=== PATIENT | female | born 1985 | race Caucasian/White ===

== ENCOUNTER 2016-06-27 19:36 | Emergency (ER) | payer OTHER ==
[2016-06-27 19:42] VITALS: BP 131/61; PULSE 67; TEMP 98.3; BMI 32.2
--- NOTE | 2016-06-27 20:59 | PDOC ---
History of Present Illness - General Chief Complaint: Pain Stated Complaint: CHEST PAIN Time Seen by Provider: 06/27/16 20:20 History Source: Patient - History of Present Illness Presenting Symptoms: Chest Pain Timing/Duration: reports: intermittent Chest Pain Radiation: reports: arms Past History - Past Medical History Allergies/Adverse Reactions: Allergies Allergy/AdvReac Type Severity Reaction Status Date / Time No Known Drug Allergies Allergy Verified 01/28/16 14:12 Home Medications: Ambulatory Orders Loratadine [Claritin -] 10 mg PO DAILY 06/27/16 Asthma: No Cancer: No Cardiac Disorders: No Diabetes: No HTN: No Seizures: No Thyroid Disease: No - Surgical History Cholecystectomy: Yes - Reproductive History (#): 1 Para: 0 - Psycho/Social/Smoking Cessation Hx Anxiety: No Suicidal Ideation: No Smoking Status: No Smoking History: Never smoked Have you smoked in the past 12 months: No Number of Cigarettes Smoked Daily: 0 Hx Alcohol Use: No Drug/Substance Use Hx: No Substance Use Type: None Hx Substance Use Treatment: No Review of Systems - Review of Systems Constitutional: No: Chills, Fever Respiratory: No: Cough, Shortness of Breath Cardiac (ROS): Yes: Chest Pain. No: Palpitations Neurological: No: Dizziness *Physical Exam - Vital Signs Last Vital Signs Temp Pulse Resp BP Pulse Ox 98.3 F 67 16 131/61 99 06/27/16 19:40 06/27/16 19:40 06/27/16 19:40 06/27/16 19:40 06/27/16 19:40 - Physical Exam General Appearance: Yes: Appropriately Dressed. No: Apparent Distress HEENT: positive: Normal Voice Neck: positive: Supple Respiratory/Chest: positive: Chest Tender (to lateral aspect of L breast, no skin changes or lump palpated), Lungs Clear, Normal Breath Sounds. negative: Respiratory Distress Cardiovascular: positive: Regular Rate, S1, S2 Extremity: positive: Normal Inspection Integumentary: positive: Dry, Warm Neurologic: positive: Fully Oriented, Alert, Normal Mood/Affect ED Treatment Course - ADDITIONAL ORDERS Additional order review: Laboratory Results 06/27/16 21:00 Urine HCG, Qual Negative - RADIOLOGY Radiology Studies Ordered: Category Date Time Status CHEST PA & LAT [RAD] Stat Radiology 06/27/16 20:53 Taken - Medications Given in the ED: ED Medications Discontinued Medications Generic Name Dose Route Start Last Admin Trade Name Beverly PRN Reason Stop Dose Admin Ibuprofen 800 mg 06/27/16 21:02 06/27/16 21:20 Motrin - PO 06/27/16 21:03 800 mg ONCE ONE Administration Medical Decision Making - Medical Decision Making 06/27/16 20:54 30 yo F, denies any pmhx, here w/ chest pain. Pt reports L sided chest pain radiating to L arm x 5 days, unable to describe, 6/10 and intermittent w/ no exacerbating/alleviating factors. No sob, diaphoresis, n/v, palpitations or leg pain/swelling. No h/o similar sxs. No obvious RFs for DVT/PE and no tob hx. Denies illicit drug use. No fmhx of SCA in a young person. See exam Chest pain Unlikely cardiac as no RF, do not suspect dissection and PERCs out, doubt infxn , i.e PNA as no cough or fever Possibly MSK vs breast source as pain very reproducible to lateral aspect of L breast without any mass/lump or skin changes -EXR and CXR -anticitpate discharge w/ PMD f/u 06/27/16 21:29 EKG read as neg by ED attg. CXR neg for acute pathology. Pt stable for discharge at this time, to f/u with her PMD 06/27/16 21:33 06/27/16 21:46 *DC/Admit/Observation/Transfer Diagnosis at time of Disposition: Chest pain Qualifiers: Chest pain type: unspecified Qualified Code(s): R07.9 - Chest pain, unspecified - Discharge Dispostion Disposition: HOME Condition at time of disposition: Good - Referrals Referrals: Mercedes Ferrer MD [Primary Care Provider] - - Patient Instructions Printed Discharge Instructions: DI for Atypical Chest Pain Additional Instructions: Flanagan EKG de flanagan corazn y flanagan CXR de megan pulmones son normales. La julissa de flanagan dolor es ms probable no flaangan corazn o los pulmones y usted no tiene ningn factores de riesgo para un cogulo de taco. Flanagan dolor puede provenir de flanagan pecho angelique si estuviera tierno en flanagan pecho primo. Flanagan dolor tambin podra ser muscular. [place] motrin, 800 mg cada 6 horas, segn sea necesario para el dolor. Si el dolor contina, realice un seguimiento con flanagan mdico Print Language: GIBRALTARIAN
[2016-06-27] MEDS ORDERED: IBUPROFEN 400 MG TABLET (FP) PO ONE ×2 (21:02→21:19)
--- NOTE | 2016-06-29 09:22 | EKG ---
Test Reason : Blood Pressure : / mmHG Vent. Rate : 065 BPM Atrial Rate : 065 BPM P-R Int : 136 ms QRS Dur : 076 ms QT Int : 416 ms P-R-T Axes : 010 012 016 degrees QTc Int : 432 ms NORMAL SINUS RHYTHM NORMAL ECG NO PREVIOUS ECGS AVAILABLE Confirmed by DALIA ROSALES MD ([id number]) on 06/29/2016 9:22:07 AM Referred By: Confirmed By:DALIA ROSALES MD
== END 2016-06-27 21:42 | disposition home or self-care (01) ==
LOC: JERFT 19:36
DX: R07.89 Other chest pain (principal)
CPT/HCPCS: 71020-TC; 84703; 93005; 93010; 99281-25

== ENCOUNTER 2017-12-15 12:01 | Emergency (ER) | payer OTHER ==
[2017-12-15 12:21] VITALS: TEMP 98.2; BMI 31.6
--- NOTE | 2017-12-15 14:00 | PDOC ---
History of Present Illness - General Chief Complaint: Vaginal Bleeding Stated Complaint: ABD PAIN Time Seen by Provider: 12/15/17 13:30 History Source: Patient, [employer] Used (#[id number]) Exam Limitations: Clinical Condition - History of Present Illness Initial Comments: 12/15/17 14:00 Patient with no significant past medical she present with complain of lower abdominal pain since yesterday with vaginal spotting this morning. Patient reports taking home test 2 days ago and was positive. Patient with LMP November 26. Denies nausea, vomiting. Denies control use. Denies constipation or diarrhea. Denies fever or any other symptoms Timing/Duration: 24 hours Past History - Past Medical History Allergies/Adverse Reactions: Allergies Allergy/AdvReac Type Severity Reaction Status Date / Time No Known Drug Allergies Allergy Verified 12/15/17 12:18 Home Medications: Ambulatory Orders NK [No Known Home Medication] 12/15/17 Asthma: No Cancer: No Cardiac Disorders: No Diabetes: No HTN: No Seizures: No Thyroid Disease: No - Surgical History Cholecystectomy: Yes - Reproductive History (#): 1 Para: 0 - Suicide/Smoking/Psychosocial Hx Smoking Status: No Smoking History: Never smoked Have you smoked in the past 12 months: No Number of Cigarettes Smoked Daily: 0 Hx Alcohol Use: No Drug/Substance Use Hx: No Substance Use Type: None Hx Substance Use Treatment: No Review of Systems - Review of Systems Able to Perform ROS?: Yes Is the patient limited Mosotho proficient: No Constitutional: No: Chills, Fever, Malaise Respiratory: No: Symptoms reported Cardiac (ROS): No: Symptoms Reported ABD/GI: Yes: Symptoms Reported, See HPI, Abdominal cramping (lower abdomen since yesterday). No: Abdominal Distended, Blood Streaked Bowels, Constipated, Diarrhea, Difficulty Swallowing, Nausea, Vomiting : Yes: Other (vaginal spotting). No: Burning, Dysuria, Discharge, Frequency, Flank Pain, Hematuria, Urgency Neurological: No: Weakness, Dizziness All Other Systems: Reviewed and Negative *Physical Exam - Vital Signs Last Vital Signs Temp Pulse Resp BP Pulse Ox 98.2 F 72 16 119/65 99 12/15/17 12:20 12/15/17 12:20 12/15/17 12:20 12/15/17 12:20 12/15/17 12:20 - Physical Exam Comments: 12/15/17 14:03 GENERAL: Well developed, well nourished. Awake and alert. No acute distress. CARDIOVASCULAR: Regular rate and rhythm. No murmurs, rubs, or gallops. Distal pulses are 2+ and symmetric. PULMONARY: No evidence of respiratory distress. Lungs clear to auscultation bilaterally. No wheezing, rales or rhonchi. ABDOMINAL: Soft. Non-tender. Non-distended. No rebound or guarding. No organomegaly. Normoactive bowel sounds. : scant amount of blood in vaginal vault. no active vaginal bleeding. no visible lesions. no CMT. cervical os closed NEUROLOGICAL: Alert, awake, appropriate. PSYCHIATRIC: Cooperative. Good eye contact. Appropriate mood and affect. 12/15/17 15:54 General Appearance: Yes: Nourished, Appropriately Dressed. No: Apparent Distress ED Treatment Course - LABORATORY CBC & Chemistry Diagram: 12/15/17 14:46 12/15/17 14:46 Medical Decision Making - Medical Decision Making 12/15/17 16:58 Patient with no sig Past medical history LMP November 26 present with complain of vaginal spotting and abdominal pain since last night. Patient took a home test 2 days ago which was positive. Exam shows scant vaginal bleeding with no active bleeding. Cervical os closed. Symptoms likely threatened . Labs shows beta hCG of 400+. Pelvic sonogram shows no viable IUP at this time which is expected given low hCG level. Patient stable for discharge with follow-up in 48 hours for repeat beta hCG. Patient given strict follow-up for vaginal bleeding *DC/Admit/Observation/Transfer Diagnosis at time of Disposition: Threatened - Discharge Dispostion Disposition: HOME Condition at time of disposition: Stable Decision to Admit order: No - Referrals Referrals: Tung Duran MD [Staff Physician] - - Patient Instructions Printed Discharge Instructions: DI for Threatened - Post Discharge Activity
[2017-12-15 15:02] LABS: BASO % 0.6 % (0-2.0); HEMATOCRIT 33.7 % (32.4-45.2); HEMOGLOBIN 10.7 GM/dL (10.7-15.3); LYMPH % 36.9 % (8-40); MCH 23.7 pg (25.7-33.7); MCHC 31.8 g/dl (32.0-36.0); MEAN CELL VOLUME 74.6 fl (80-96); MEAN PLT VOLUME 8.4 fl (7.5-11.1); MONO % 6.8 % (3.8-10.2); NEUT % 53.7 % (42.8-82.8); PLATELET COUNT 261 K/MM3 (134-434); RBC 4.52 M/mm3 (3.60-5.2); RDW 15.6 % (11.6-15.6); WHITE BLOOD COUNT 5.1 K/mm3 (4.0-10.0)
[2017-12-15 15:17] LABS: INR 1.03 (0.83-1.09); PROTHROMBIN TIME (PATIENT) 12.2 SEC (9.7-13.0)
[2017-12-15 15:20] LABS: ACTIVATED PTT 33.3 SECONDS (25.2-36.5)
[2017-12-15 15:22] LABS: URINE APPEARANCE CLEAR; URINE BILIRUBIN NEGATIVE (<2.0 mg/dL); URINE COLOR LTYELLOW; URINE GLUCOSE (UA) NEGATIVE (NEGATIVE); URINE KETONE NEGATIVE (NEGATIVE); URINE LEUK ESTERASE NEGATIVE (NEGATIVE); URINE NITRITE NEGATIVE (NEGATIVE); URINE PROTEIN NEGATIVE (NEGATIVE); URINE UROBILINOGEN NEGATIVE mg/dL (0.2-1.0)
[2017-12-15 15:31] LABS: ALBUMIN 4.1 g/dl (3.4-5.0); ALK PHOS 54 U/L (45-117); ANION GAP 9 MMOL/L (8-16); BILIRUBIN,TOTAL 0.6 mg/dL (0.2-1); BLOOD UREA NITROGEN 7 mg/dL (7-18); CALCIUM 8.5 mg/dL (8.5-10.1); CHLORIDE 107 mmol/L (98-107); CO2 24 mmol/L (21-32); CREATININE 0.6 mg/dL (0.55-1.3); GLUCOSE,RANDOM 94 mg/dL (74-106); POTASSIUM 3.8 mmol/L (3.5-5.1); SGOT/AST 26 U/L (15-37); SGPT/ALT 44 U/L (13-61); SODIUM 139 mmol/L (136-145); TOT PROT 7.6 g/dl (6.4-8.2)
[2017-12-15 16:40] VITALS: BP 130/73; PULSE 60
== END 2017-12-15 17:12 | disposition home or self-care (01) ==
LOC: JER 12:01
DX: O26.891 Other specified pregnancy related conditions, first trimester (principal); O20.0 Threatened abortion; Z3A.01 Less than 8 weeks gestation of pregnancy
CPT/HCPCS: 36415; 76817-TC; 80053; 81003; 84702; 85025; 85610; 85730; 86850; 86900; 86901; 87086; 99282-25

== ENCOUNTER 2017-12-29 17:37 | Emergency (ER) | payer OTHER ==
[2017-12-29 17:58] VITALS: BMI 31.8
--- NOTE | 2017-12-29 18:00 | PDOC ---
Rapid Medical Evaluation Chief Complaint: Vaginal Bleeding Time Seen by Provider: 12/29/17 17:58 Medical Evaluation: Allergies Allergy/AdvReac Type Severity Reaction Status Date / Time No Known Drug Allergies Allergy Verified 12/29/17 17:58 Vital Signs Temp Pulse Resp BP Pulse Ox 98.5 F 73 15 103/45 L 98 12/29/17 17:56 12/29/17 17:56 12/29/17 17:56 12/29/17 17:56 12/29/17 17:56 12/29/17 17:59 I have performed a brief in-person evaluation of this patient. The patient presents with a chief complaint of: 3 days vag bleed with cramps/ clots. 1 month preg Pertinent physical exam findings: Vss, amb, mild abd pain I have ordered the following: CBC, Type and Screen, BHcG The patient will proceed to the ED for further evaluation Discharge Disposition - Referrals Referrals: Mercedes Ferrer MD [Primary Care Provider] - - Patient Instructions - Post Discharge Activity
[2017-12-29 18:34] LABS: BASO % 0.6 % (0-2.0); EOS % 2.8 % (0-4.5); HEMATOCRIT 32.3 % (32.4-45.2); HEMOGLOBIN 10.6 GM/dL (10.7-15.3); LYMPH % 39.2 % (8-40); MCH 24.1 pg (25.7-33.7); MCHC 32.7 g/dl (32.0-36.0); MEAN CELL VOLUME 73.5 fl (80-96); MEAN PLT VOLUME 7.7 fl (7.5-11.1); MONO % 7.4 % (3.8-10.2); PLATELET COUNT 300 K/MM3 (134-434); RBC 4.39 M/mm3 (3.60-5.2); RDW 15.6 % (11.6-15.6); WHITE BLOOD COUNT 6.5 K/mm3 (4.0-10.0)
--- NOTE | 2017-12-29 19:54 | PDOC ---
History of Present Illness - General Chief Complaint: Vaginal Bleeding Stated Complaint: 4 WEEKS Vaginal Bleeding/ABD PAIN Time Seen by Provider: 12/29/17 17:58 History Source: Patient Exam Limitations: No Limitations - History of Present Illness Initial Comments: 12/29/17 19:53 Best Contact: PCP: [facility] Pmhx:0 Pshx:0 Allergies:0 FH:0 Social Hx: Cigarettes/ 0 Alcohol/ 0 Drugs/0 LMP:11/28/2017 32-year-old female presents to the emergency department complaining of intermittent minimal vaginal bleed 3 days on and off. Patient denies nausea/ vomiting, fever/chills, dizziness, lightheadedness, headache, chest pain, shortness of breath, neck pain, back pains, abdominal pains, urinary symptoms: Frequency/urgency/hesitancy, hematuria, extremity numbness or tingling sensation. Patient states she came to the ER today because her friends advised her that is important that she gets a repeat ultrasound Past History - Past Medical History Allergies/Adverse Reactions: Allergies Allergy/AdvReac Type Severity Reaction Status Date / Time No Known Drug Allergies Allergy Verified 12/29/17 17:58 Home Medications: Ambulatory Orders Acetaminophen [Tylenol] 650 mg PO ONCE 12/29/17 Asthma: No Cancer: No Cardiac Disorders: No COPD: No Diabetes: No HTN: No Seizures: No Thyroid Disease: No - Surgical History Cholecystectomy: Yes - Reproductive History (#): 1 Para: 0 Cervical CA: No Dysfunctional Uterine Bleeding: No Ectopic : No Endometrial CA: No Polycystic Ovaries: No Tubal Ligation: No - Suicide/Smoking/Psychosocial Hx Smoking Status: No Smoking History: Never smoked Have you smoked in the past 12 months: No Number of Cigarettes Smoked Daily: 0 Hx Alcohol Use: No Drug/Substance Use Hx: No Substance Use Type: None Hx Substance Use Treatment: No Review of Systems - Review of Systems Able to Perform ROS?: Yes Comments:: 12/29/17 21:09 CONSTITUTIONAL: Absent: fever, chills, diaphoresis, generalized weakness, malaise, loss of appetite HEENT: Absent: rhinorrhea, nasal congestion, throat pain, throat swelling, difficulty swallowing, mouth swelling, ear pain, eye pain, visual Changes CARDIOVASCULAR: Absent: chest pain, loss of consciousness, palpitations, irregular heart rate, peripheral edema RESPIRATORY: Absent: cough, shortness of breath, dyspnea with exertion, orthopnea, wheezing, stridor, hemoptysis GASTROINTESTINAL: +vag bleed/ quarter size clots on and off x3d Absent: abdominal pain, abdominal distension, nausea, vomiting, diarrhea, constipation, melena, hematochezia GENITOURINARY: Absent: dysuria, frequency, urgency, hesitancy, hematuria, flank pain, genital pain MUSCULOSKELETAL: Absent: myalgia, arthralgia, joint swelling SKIN: Absent: rash, itching, pallor HEMATOLOGIC/IMMUNOLOGIC: Absent: easy bleeding, easy bruising, lymphadenopathy, frequent infections ENDOCRINE: Absent: unexplained weight gain, unexplained weight loss, heat intolerance, cold intolerance NEUROLOGIC: Absent: headache, focal weakness or paresthesias, dizziness, unsteady gait, seizure, mental status changes, bladder or bowel incontinence PSYCHIATRIC: Absent: anxiety, depression, suicidal or homicidal ideation, hallucinations. Is the patient limited Israeli proficient: No *Physical Exam - Vital Signs Last Vital Signs Temp Pulse Resp BP Pulse Ox 98.5 F 73 15 103/45 L 98 12/29/17 17:56 12/29/17 17:56 12/29/17 17:56 12/29/17 17:56 12/29/17 17:56 - Physical Exam Comments: 12/29/17 21:09 GENERAL: Well developed, well nourished. Awake and alert. No acute distress. HEENT: Normocephalic, atraumatic. PERRLA, EOMI. No conjunctival pallor. Sclera are non- icteric. Moist mucous membranes. Oropharynx is clear. NECK: Supple. Full ROM. No JVD. Carotid pulses 2+ and symmetric, without bruits. No thyromegaly. No lymphadenopathy. CARDIOVASCULAR: Regular rate and rhythm. No murmurs, rubs, or gallops. Distal pulses are 2+ and symmetric. PULMONARY: No evidence of respiratory distress. Lungs clear to auscultation bilaterally. No wheezing, rales or rhonchi. ABDOMINAL: Soft. Non-tender. Non-distended. No rebound or guarding. No organomegaly. Normoactive bowel sounds. MUSCULOSKELETAL Normal range of motion at all joints. No bony deformities or tenderness. No CVA tenderness. EXTREMITIES: No cyanosis. No clubbing. No edema. No calf tenderness. SKIN: Warm and dry. Normal capillary refill. No rashes. No jaundice. NEUROLOGICAL: Alert, awake, appropriate. Cranial nerves 2-12 intact. No deficits to light touch and temperature in face, upper extremities and lower extremities. No motor deficits in the in face, upper extremities and lower extremities. Normoreflexic in the upper and lower extremities. Normal speech. Toes are down- going bilaterally. Gait is normal without ataxia. PSYCHIATRIC: Cooperative. Good eye contact. Appropriate mood and affect. Pelvic: External genitalia normal without lesions. Vaginal vault is clear with blood/min amount Cervix is long and closed. ED Treatment Course - LABORATORY CBC & Chemistry Diagram: 12/29/17 18:27 - ADDITIONAL ORDERS Additional order review: Laboratory Results 12/29/17 18:27 Beta HCG, Quant 266.1 12/29/17 18:27 RBC 4.39 MCV 73.5 L MCHC 32.7 RDW 15.6 MPV 7.7 Neutrophils % 50.0 Lymphocytes % 39.2 Monocytes % 7.4 Eosinophils % 2.8 Basophils % 0.6 - RADIOLOGY Radiograph Interpretation: 12/29/17 22:17 Transvaginal ultrasound: Significantly thickened endometrial stripe measuring 2.5 mm in AP dimension without evidence of intrauterine gestational sac. Hypo- echoic masslike density in the right adnexal inseparable from the right ovary measuring 3.2 x 1.8 cm. It is unclear whether this hypoechoic density represents complex fluid or hemorrhage or it is part of the right ovary with a total measuring of 4 x 2.4 cm. *DC/Admit/Observation/Transfer Diagnosis at time of Disposition: Miscarried within last 12 months - Discharge Dispostion Decision to Admit order: No - Referrals Referrals: Mercedes Ferrer MD [Primary Care Provider] - Tung Duran MD [Staff Physician] - - Patient Instructions Printed Discharge Instructions: DI for Miscarriage Additional Instructions: Pelvic rest Increase fluids Follow up with your brusher or the one listed on your discharge in 2 days Return to the ER for severe/worsening symptoms, dizziness. Reposo plvico Aumentar los fluidos Bev un seguimiento con flanagan obstetra o con el que figura en flanagan javon hospitalaria en 2 mann Regrese a la bess de emergencias para los sntomas graves / que empeoran, mareos. [place] plvico / no actividades sexuales. DEBE hacer un seguimiento en la clnica ubicada en [address] en [place]. Tu hcg beta es el nivel de la hormona del embarazo que es 266 esta noche. DEBE extraer flanagan taco de hcg beta en 2 mann para asegurarse de que vaya ms bajo. Regrese a la bess de emergencias para los sntomas graves / persistentes / que empeoran o cualquier otra inquietud. Print Language: FRENCH - Post Discharge Activity Progress Note - Progress Note Progress Note: 2226hrs: Spoke to Dr. Schumacher/[employer] covering for Dr. Duran (ER recreation programmer ) Dr. Schumacher states to follow-up at [facility] tomorrow repeat beta hCG in 2 days/
[2017-12-29 23:36] VITALS: BP 110/55; PULSE 76; TEMP 98.3
== END 2017-12-29 23:36 | disposition home or self-care (01) ==
LOC: JER 17:37
DX: O26.891 Other specified pregnancy related conditions, first trimester (principal); O02.1 Missed abortion; Z3A.01 Less than 8 weeks gestation of pregnancy
CPT/HCPCS: 36415; 76817-TC; 84702; 85025; 86850; 86900; 86901; 99282-25

== ENCOUNTER 2018-05-17 03:25 | Emergency (ER) | payer OTHER ==
[2018-05-17 03:43] VITALS: TEMP 98.3; BMI 31.1
--- NOTE | 2018-05-17 03:52 | PDOC ---
History of Present Illness - General Chief Complaint: Pain, Acute Stated Complaint: ABD PAIN/VAGINAL BLEED/4WKS Time Seen by Provider: 05/17/18 03:46 - History of Present Illness Initial Comments: 05/17/18 03:50 32 yo at 4wga LMP unknown who p/w vaginal spotting, and RLQ abdominal pain. Patient reports acute on chronic, crampy, RLQ adbominal pain radiating to right groin, worsening this morning, with no identifiable triggers or alleviators. Pain 2-3 weeks. Endorses 2 days of vaginal spotting, without clotting, now resolved ( 05/15/18). Denies abdominal trauma Patient denies ANG, vision change, palpitations, cough, wheezing, orthopena, PND , leg swelling/pain, N/V, F,C, CP, SOB, urinary complaints, hematuria, BPR, pelvic pain, vaginal burning/itching, diarrhea, constipation, lightheadedness, weakness, sensory changes. PMHx: as noted above ROS: as noted SHx: Denies Etoh, IVDA. Does not f/w Courtroom Deputy Allergies: NKDA Past History - Past Medical History Allergies/Adverse Reactions: Allergies Allergy/AdvReac Type Severity Reaction Status Date / Time No Known Drug Allergies Allergy Verified 05/17/18 03:41 Home Medications: Ambulatory Orders Acetaminophen [Tylenol] 650 mg PO ONCE 12/29/17 Asthma: No Cancer: No Cardiac Disorders: No COPD: No Diabetes: No HTN: No Seizures: No Thyroid Disease: No - Surgical History Cholecystectomy: Yes - Reproductive History (#): 1 Para: 0 Cervical CA: No Dysfunctional Uterine Bleeding: No Ectopic : No Endometrial CA: No Polycystic Ovaries: No Tubal Ligation: No - Suicide/Smoking/Psychosocial Hx Smoking Status: No Smoking History: Never smoked Have you smoked in the past 12 months: No Number of Cigarettes Smoked Daily: 0 Information on smoking cessation initiated: No Hx Alcohol Use: No Drug/Substance Use Hx: No Substance Use Type: None Hx Substance Use Treatment: No Review of Systems - Review of Systems Comments:: 05/17/18 03:51 GENERAL/CONSTITUTIONAL: No fever or chills. No weakness. HEAD, EYES, EARS, NOSE AND THROAT: No change in vision. No ear pain or discharge. No sore throat. CARDIOVASCULAR: No chest pain or shortness of breath RESPIRATORY: No cough, wheezing, or hemoptysis. GASTROINTESTINAL: +Abdominal pain. No nausea, vomiting, diarrhea or constipation. GENITOURINARY: No dysuria, frequency, or change in urination. MUSCULOSKELETAL: No joint or muscle swelling or pain. No neck or back pain. SKIN: No rash NEUROLOGIC: No headache, vertigo, loss of consciousness, or change in strength/ sensation. ENDOCRINE: No increased thirst. No abnormal weight change HEMATOLOGIC/LYMPHATIC: No anemia, easy bleeding, or history of blood clots. ALLERGIC/IMMUNOLOGIC: No hives or skin allergy. *Physical Exam - Vital Signs Last Vital Signs Temp Pulse Resp BP Pulse Ox 98.3 F 62 20 111/56 L 98 05/17/18 03:42 05/17/18 03:42 05/17/18 03:42 05/17/18 03:42 05/17/18 03:42 - Physical Exam Comments: 05/17/18 03:51 GENERAL: Awake, alert, and fully oriented, in no acute distress HEAD: No signs of trauma, normocephalic, atraumatic EYES: PERRLA, EOMI, sclera anicteric, conjunctiva clear ENT: Auricles normal inspection, hearing grossly normal, nares patent, oropharynx clear without exudates. Moist mucosa NECK: Normal ROM, supple, no lymphadenopathy, JVD, or masses LUNGS: No distress, speaks full sentences, clear to auscultation bilaterally HEART: Regular rate and rhythm, normal S1 and S2, no murmurs, rubs or gallops, peripheral pulses normal and equal bilaterally. ABDOMEN: Soft, Nontender, NDS, normoactive bowel sounds. No guarding, no rebound. No masses. Neg CVA ttp. GENITOURINARY: Nml appearing external genitalia, with absent lesions. Vaginal vault without blood, and scant white discharge. Cervical os closed. Neg CMT on BM. Neg adenexal ttp, or mass palpated. Chaperoned by Andres LANG EXTREMITIES : Normal inspection, Normal range of motion, no edema. No clubbing or cyanosis. NEUROLOGICAL: Cranial nerves II through XII grossly intact. Normal speech, normal gait, no focal sensorimotor deficits SKIN: Warm, Dry, normal turgor, no rashes or lesions noted Moderate Sedation - Procedure Monitoring Vital Signs: Procedure Monitoring Vital Signs Temperature 98.3 F 05/17/18 03:42 Pulse Rate 62 05/17/18 03:42 Respiratory Rate 20 05/17/18 03:42 Blood Pressure 111/56 L 05/17/18 03:42 O2 Sat by Pulse Oximetry (%) 98 05/17/18 03:42 ED Treatment Course - LABORATORY CBC & Chemistry Diagram: 05/17/18 03:48 05/17/18 03:48 Medical Decision Making - Medical Decision Making 05/17/18 04:05 32 yo at 4wga LMP unknown who p/w crampy, RLQ adbominal pain this morning, with no identifiable triggers or alleviators. + 2 days of vaginal spotting, without clotting, now resolved ( 05/15/18). Vitals wnl, AF, A&OX3. Physical exam unremarkable. R/o torsion. Will asses for viable IUP and consider first trimester causes of abdominal pain and bleeding including threatened , JUSTIN. Will also consider cysitis, colitis, appendicitis, nephrolithaisis. Will provide analgesia and reassess. Ed Course: 05/17/18 04:13 TVUS, RLQ U/S Tylenol 650 mg CBC, CMP: Unremarkable 05/17/18 05:20 HC UA: Neg 05/17/18 07:05 Patient pending ultrasound. Endorsed to day team. Stable. *DC/Admit/Observation/Transfer Diagnosis at time of Disposition: Abdominal pain affecting - Discharge Dispostion Condition at time of disposition: Stable Decision to Admit order: No - Referrals Referrals: Mercedes Ferrer MD [Primary Care Provider] - Hasmukh Vazquez MD [Staff Physician] - - Patient Instructions Printed Discharge Instructions: DI for Abdominal Pain -- Early Additional Instructions: Please return to the emergency department with any new or worsening symptoms or concerns. Please follow up with your Courtroom Deputy or primary care physician within 72 hours. - Post Discharge Activity
[2018-05-17 04:02] LABS: BASO % 0.5 % (0-2.0); EOS % 1.5 % (0-4.5); HEMATOCRIT 33.8 % (32.4-45.2); HEMOGLOBIN 11.2 GM/dL (10.7-15.3); LYMPH % 26.9 % (8-40); MCH 24.8 pg (25.7-33.7); MCHC 33.1 g/dl (32.0-36.0); MEAN CELL VOLUME 74.8 fl (80-96); MEAN PLT VOLUME 7.8 fl (7.5-11.1); MONO % 7.7 % (3.8-10.2); NEUT % 63.4 % (42.8-82.8); PLATELET COUNT 249 K/MM3 (134-434); RBC 4.52 M/mm3 (3.60-5.2); RDW 17.7 % (11.6-15.6); WHITE BLOOD COUNT 6.8 K/mm3 (4.0-10.0)
[2018-05-17] MEDS ORDERED: ACETAMINOPHEN 325 MG TABLET (FP) ONE (04:04)
[2018-05-17] MEDS ORDERED: ACETAMINOPHEN 325 MG TABLET (FP) PO ONE (04:04)
[2018-05-17 04:39] LABS: HYALINE CASTS 4 /hpf (0-8); URINE APPEARANCE CLEAR; URINE BACTERIA 136.854 /hpf (NEGATIVE); URINE BILIRUBIN NEGATIVE (<2.0 mg/dL); URINE COLOR YELLOW; URINE GLUCOSE (UA) NEGATIVE (NEGATIVE); URINE KETONE NEGATIVE (NEGATIVE); URINE LEUK ESTERASE 1+ (NEGATIVE); URINE NITRITE NEGATIVE (NEGATIVE); URINE PROTEIN NEGATIVE (NEGATIVE); URINE RBC 0 /hpf (0-4); URINE UROBILINOGEN 0.2 mg/dL (0.2-1.0); URINE WBC 2 /hpf (0-5)
[2018-05-17 04:51] LABS: ALBUMIN 3.7 g/dl (3.4-5.0); ALK PHOS 63 U/L (45-117); ANION GAP 7 MMOL/L (8-16); BILIRUBIN,TOTAL 0.4 mg/dL (0.2-1); BLOOD UREA NITROGEN 12 mg/dL (7-18); CALCIUM 8.5 mg/dL (8.5-10.1); CHLORIDE 106 mmol/L (98-107); CO2 23 mmol/L (21-32); CREATININE 0.6 mg/dL (0.55-1.3); GLUCOSE,RANDOM 107 mg/dL (74-106); POTASSIUM 3.8 mmol/L (3.5-5.1); SGOT/AST 12 U/L (15-37); SGPT/ALT 23 U/L (13-61); SODIUM 135 mmol/L (136-145); TOT PROT 7.3 g/dl (6.4-8.2)
--- NOTE | 2018-05-17 05:11 | PDOC ---
Attending Attestation - Resident Resident Name: AntwanMandeep - ED Attending Attestation I have performed the following: I have examined & evaluated the patient, The case was reviewed & discussed with the resident, I agree w/resident's findings & plan, Exceptions are as noted - HPI HPI: 05/17/18 05:07 32 F presenting to ED with lower abdominal pain. Pt states she is , and her LMP was about 8 weeks ago. Has not had US yet to confirm. Pt denies any F/C. Denies N/V/D. States that her pain is in her lower abdomen, more on the right side. Denies dysuria. Endorses some vaginal spotting. - Physicial Exam PE: 05/17/18 05:08 GENERAL: Awake, alert, and fully oriented, in no acute distress. HEAD: No signs of trauma EYES: PERRLA, EOMI, sclera anicteric, conjunctiva clear ENT: Auricles normal inspection, hearing grossly normal, nares patent, oropharynx clear without exudates. Moist mucosa NECK: Nontender, no stepoffs, Normal ROM, supple, no lymphadenopathy, JVD, or masses LUNGS: Breath sounds equal, clear to auscultation bilaterally. No wheezes, and no crackles HEART: Regular rate and rhythm, normal S1 and S2, no murmurs, rubs or gallops ABDOMEN: + minimal RLQ and suprapubic tenderness, normoactive bowel sounds. No guarding, no rebound. No masses EXTREMITIES: Normal range of motion, no edema. No clubbing or cyanosis. No cords, erythema, or tenderness NEUROLOGICAL: Cranial nerves II through XII intact. 5/5 strength and sensation in all extremities, Normal speech, normal gait, normal cerebellar function SKIN: Warm, Dry, normal turgor, no rashes or lesions noted. - Medical Decision Making 05/17/18 05:09 32 F , @ 8 weeks by LMP, presenting to ED with lower abdominal pain and vaginal spotting. Pt with mild RLQ tenderness on exam. Will need to r/o ectopic. Also consider appendicitis, though pt with minimal pain and is non- toxic appearing. - Labs, UA, HCG, T&S - TVUS - Pelvic US to r/o appy - Tylenol PT signed out to oncoming attending at 7AM, pending labs, imaging, and re- evaluation.
[2018-05-17] MEDS ORDERED: METHOCARBAMOL 500 MG TABLET PO ONE (05:15)
--- NOTE | 2018-05-17 07:53 | PDOC ---
*Physical Exam - Vital Signs Last Vital Signs Temp Pulse Resp BP Pulse Ox 98.3 F 73 18 110/61 99 05/17/18 03:42 05/17/18 06:32 05/17/18 06:32 05/17/18 06:32 05/17/18 06:32 ED Treatment Course - LABORATORY CBC & Chemistry Diagram: 05/17/18 03:48 05/17/18 03:48 - ADDITIONAL ORDERS Additional order review: Laboratory Results 05/17/18 05/17/18 05/17/18 04:14 03:48 03:48 Sodium 135 L Potassium 3.8 Chloride 106 Carbon Dioxide 23 Anion Gap 7 L BUN 12 Creatinine 0.6 Creat Clearance w eGFR 114.44 Random Glucose 107 H Calcium 8.5 Total Bilirubin 0.4 AST 12 L ALT 23 Alkaline Phosphatase 63 Total Protein 7.3 Albumin 3.7 Beta HCG, Quant 50266.0 Urine Color Yellow Urine Appearance Clear Urine pH 5.0 Ur Specific [place] 1.012 Urine Protein Negative Urine Glucose (UA) Negative Urine Ketones Negative Urine Blood Negative Urine Nitrite Negative Urine Bilirubin Negative Urine Urobilinogen 0.2 Ur Leukocyte Esterase 1+ Urine WBC (Auto) 2 Urine RBC (Auto) 0 Urine Casts (Auto) 4 U Epithel Cells (Auto) 11.0 Urine Bacteria (Auto) 136.854 Blood Type O POSITIVE Antibody Screen Negative 05/17/18 03:48 RBC 4.52 MCV 74.8 L MCHC 33.1 RDW 17.7 H MPV 7.8 Neutrophils % 63.4 D Lymphocytes % 26.9 D Monocytes % 7.7 Eosinophils % 1.5 Basophils % 0.5 - Medications Given in the ED: ED Medications Discontinued Medications Generic Name Dose Route Start Last Admin Trade Name Juan Aq PRN Reason Stop Dose Admin Acetaminophen 650 mg 05/17/18 04:04 05/17/18 04:07 Tylenol - PO 05/17/18 04:05 650 mg ONCE ONE Administration Methocarbamol 500 mg 05/17/18 05:15 05/17/18 05:20 Robaxin - PO 05/17/18 05:16 Not Given ONCE ONE Medical Decision Making - Medical Decision Making 05/17/18 07:[address] Moncada. Patient is 29F 4 weeks by LMP here today complaining of RLQ abdominal pain. Nontender on exam, pending US. UA shows possible infection, will cover with keflex. 05/17/18 09:27 TVUS shows IUP of 7w2d, otherwise normal. No visualization of appendix. Nontender on exam. Will discharge with return precautions. *DC/Admit/Observation/Transfer Diagnosis at time of Disposition: Abdominal pain affecting , UTI (urinary tract infection) - Discharge Dispostion Disposition: HOME Condition at time of disposition: Good Decision to Admit order: No - Prescriptions Prescriptions: Cephalexin Monohydrate [Keflex -] 500 mg PO BID #10 capsule - Referrals Referrals: Mercedes Ferrer MD [Primary Care Provider] - Hasmukh Vazquez MD [Staff Physician] - - Patient Instructions Printed Discharge Instructions: DI for Abdominal Pain -- Early , DI for Urinary Tract Infection (UTI) Additional Instructions: Please return to the emergency department with any new or worsening symptoms or concerns. Please follow up with your Information Technology Analyst or primary care physician within 72 hours. - Post Discharge Activity
[2018-05-17] MEDS ORDERED: CEPHALEXIN MONOHYDRATE 500 MG CAPSULE (UD) PO ONE (09:28)
[2018-05-17] MEDS ORDERED: CEPHALEXIN MONOHYDRATE 500 MG CAPSULE (UD) ONE (09:39)
[2018-05-17 09:48] VITALS: BP 112/70; PULSE 70
== END 2018-05-17 09:47 | disposition home or self-care (01) ==
LOC: JER 03:25
DX: O26.891 Other specified pregnancy related conditions, first trimester (principal); O23.31 Infections of other parts of urinary tract in pregnancy, first trimester; R10.30 Lower abdominal pain, unspecified; Z3A.01 Less than 8 weeks gestation of pregnancy
CPT/HCPCS: 36415; 76817-TC; 76856-TC; 80053; 81003; 84702; 85025; 86850; 86900; 86901; 87077; 87086; 99285-25

== ENCOUNTER 2018-07-30 18:25 | Emergency (ER) | payer OTHER | END 2018-07-30 21:10 | disposition home or self-care (01) | LOC: JER 18:25 ==

== ENCOUNTER 2019-01-04 05:30 | Inpatient (IN) | payer OTHER ==
[2019-01-04] MEDS ORDERED: DEXTROSE 5%-LACTATED RINGERS 1,000 ML IV SCH ×2 (06:30→07:15)
[2019-01-04 06:33] VITALS: BMI 35.3
[2019-01-04 06:44] LABS: BASO % 0.3 % (0-2.0); EOS % 1.4 % (0-4.5); HEMATOCRIT 39.3 % (32.4-45.2); HEMOGLOBIN 13.6 GM/dL (10.7-15.3); LYMPH % 27.4 % (8-40); MCH 31.6 pg (25.7-33.7); MCHC 34.6 g/dl (32.0-36.0); MEAN CELL VOLUME 91.4 fl (80-96); MEAN PLT VOLUME 8.9 fl (7.5-11.1); NEUT % 62.9 % (42.8-82.8); PLATELET COUNT 178 K/MM3 (134-434); RDW 13.4 % (11.6-15.6); WHITE BLOOD COUNT 6.2 K/mm3 (4.0-10.0)
[2019-01-04 07:02] LABS: BLOOD UREA NITROGEN 9.9 mg/dL (7-18); CALCIUM 8.6 mg/dL (8.5-10.1); CREATININE 0.5 mg/dL (0.55-1.3); INR 0.94 (0.83-1.09); POTASSIUM 3.7 mmol/L (3.5-5.1); PROTHROMBIN TIME (PATIENT) 11.1 SEC (9.7-13.0)
[2019-01-04] MEDS ORDERED: PROMETHAZINE HCL 25 MG/1 ML VIAL IVPB ONE (07:03)
[2019-01-04] MEDS ORDERED: BUTORPHANOL TARTRATE 1 MG/ML VIAL IVPB ONE (07:03)
[2019-01-04 07:04] LABS: ACTIVATED PTT 30.3 SECONDS (25.2-36.5)
--- NOTE | 2019-01-04 07:17 | HP ---
Past Medical History - Primary Care Physician PCP:: Hermelinda Hernandez - Admission Chief Complaint: 33 yrs , 40.3 weeks admitted in labor, onset LP since 2.00 AM History of Present Illness[facility] wt gain 37 lbs panel : 06/06/18 : O pos, hbsag neg, rpr nr, rubella pos, hiv neg, varicella immune , sickle neg, , gc/ct neg 10/30/18 1 hr gtt 105 12/04/18 : h/h 13.2/39.2, plt 189 , gc/ct neg, gbs neg 05/17/18 sono in ER 7.2 weeks edc 01/01/19 06/24/18 sono by MFM 12.5 weeks damir 01/01/19 pt seen for growth & AMA , reports not in chart History Source: Patient, Medical Record Limitations to Obtaining History: No Limitations - Past Medical History REGISTERED PHARMACY TECHNICIAN: No: Migraine, Seizure Cardiovascular: No: HTN, Murmur Pulmonary: No: Asthma Hepatobiliary: Yes: Cholelithiasis (h/o cholecystectomy). No: Hepatitis B Reproductive: Yes: Other (pap in 08/20/2017 NILM, HpV neg) ...: 4 ...Para: 2 (G1 07/12/2012 [id number]'15", G2 11/20/2013 -9'4" at [facility] ) ...Term: 2 ...: 0 ...Spon : 1 (12/2017 ) ...Induced : 0 ...Multiple Gestation: 0 ...LMP: 03/27/18 ... Weeks Gestation by Dates: 40.2 ...EDC by Dates: 01/01/19 ...EDC by Sono: 01/01/19 Heme/Onc: No: Anemia Infectious Disease: No: AIDS, HIV, STD's Psych: No: Addictions, Anxiety, Bipolar, Depression, Panic, Psychosis, Schizophrenia, Other Endocrine: No: Diabetes Mellitus, Hyperparathyroidism, Hypothyroidism - Past Surgical History Past Surgical History: Yes: Cholecystectomy (03/2014) Hx Myomectomy: No Hx Transabdominal Cerclage: No - Smoking History Smoking history: Never smoked Have you smoked in the past 12 months: No Aproximately how many cigarettes per day: 0 - Alcohol/Substance Use Hx Alcohol Use: No History of Substance Use: reports: None - Social History ADL: Independent History of Recent Travel: No Home Medications - Allergies Allergies/Adverse Reactions: Allergies Allergy/AdvReac Type Severity Reaction Status Date / Time No Known Drug Allergies Allergy Verified 01/04/19 06:12 - Home Medications Home Medications: Ambulatory Orders Prenat 115/Iron Fum/Folic/Dss [ 19 Tablet] 1 tab PO DAILY 11/18/18 Iron 1 tab PO DAILY 01/04/19 Physical Exam - Maternity Vital Signs: Vital Signs Temperature 97.8 F 01/04/19 06:24 Pulse Rate 96 H 01/04/19 06:45 Respiratory Rate 19 01/04/19 06:45 Blood Pressure 117/67 01/04/19 06:45 O2 Sat by Pulse Oximetry (%) 100 01/04/19 06:45 Selected Entries 01/04/19 01/04/19 05:30 06:14 Temperature 97.8 F Pulse Rate 75 Respiratory 20 Rate Blood Pressure 128/76 Weight 187 lb Constitutional: Yes: Well Nourished, Calm, Mild Distress Eyes: Yes: WNL HENT: Yes: WNL, Normocephalic Neck: Yes: WNL Cardiovascular: Yes: WNL, Regular Rate and Rhythm Lungs: Clear to auscultation Breast(s): Yes: Other (not examined) - Abdominal Exam/OB Number of Fetuses: Single Presentation: Vertex Contractions: Yes Regularity: Regular (2-4 min) Intensity: Moderate Monitor Mode: External Heart Rate (range): 130 Heart Rate Location: [facility] Category: I Accelerations: Uniform Decelerations: None - Vaginal Exam/OB Vaginal Bleediing: No Dilatation (cm): 5 Effacement (%): 80 Amniotic Membrane Status: Intact Presentation: Vertex/Position (exam at 7.45 AM) Station: -3 - Physical Exam Musculoskeletal: Yes: WNL Extremities: Yes: WNL. No: Calf Tenderness Edema: LLE: 1+, RLE: 1+ Integumentary: Yes: Incision (lap choly scars) Deep Tendon Reflex Grade: Normal +2 ...Motor Strength: WNL Psychiatric: Yes: WNL, Alert, Oriented - Labs Lab Results: CBC, BMP 01/04/19 06:00 01/04/19 06:00 Laboratory Tests 01/04/19 06:00 PT with INR 11.10 INR 0.94 PTT (Actin FS) 30.3 Laboratory Tests 01/04/19 06:00 Blood Type O POSITIVE Problem List - Problems (1) Post term over 40 weeks Code(s): O48.0 - POST-TERM (2) Labor established Code(s): PNN5885 - (3) AMA (advanced maternal age) multigravida 35+ Code(s): O09.529 - SUPERVISION OF ELDERLY MULTIGRAVIDA, UNSPECIFIED TRIMESTER Qualifiers: Trimester: third trimester Qualified Code(s): O09.523 - Supervision of elderly multigravida, third trimester Assessment/Plan 33 yrs , 40.3 weeks, gbs neg , admitted in labor Plan trial vag delivery . stadol +phenrgan for labor analgesia
[2019-01-04] MEDS ORDERED: BUTORPHANOL TARTRATE 1 MG/ML VIAL ONE ×2 (07:42)
[2019-01-04] MEDS ORDERED: PROMETHAZINE HCL 25 MG/1 ML VIAL ONE (07:42)
--- NOTE | 2019-01-04 10:06 | PN ---
Progress Note, Labor Vaginal Exam #1 Labor Exam Date: 01/04/19 Labor Exam Time: 09:45 Heart Rate (range): 130 Dilatation: 6 Effacement (%): 80 Amniotic Membrane Status: Ruptured (arom at 9.45 AM , light meconium) Presentation: Vertex/Position Station: -2 Remarks: fhr cat-1 uc 2-3 min mod 7.45 AM : stadol 2mg + phenrgan 25 mg Iv stat given Selected Entries 01/04/19 10:00 Temperature 97.2 F L Pulse Rate 72 Blood Pressure 126/54 L Vaginal Exam #2 Labor Exam Date: 01/04/19 Labor Exam Time: 11:45 Heart Rate (range): 150 Dilatation: 8 Effacement (%): 90 Amniotic Membrane Status: Ruptured Presentation: Vertex/Position Station: 0 Remarks: fhr cat-1 uc 2-3 min Selected Entries 01/04/19 12:00 Temperature 98.0 F Pulse Rate 86 Blood Pressure 121/63 Vaginal Exam #3 Labor Exam Date: 01/04/19 Labor Exam Time: 12:45 Heart Rate (range): 110 Dilatation: 10 Effacement (%): 100 Amniotic Membrane Status: Ruptured Presentation: Vertex/Position Station: +1 Remarks: uc 2 min fhr 110, cat-2 pt pushing
[2019-01-04] MEDS ORDERED: LIDOCAINE HCL 1% PRESERVATIVE FREE - 30ML VIAL ONE (11:47)
[2019-01-04] MEDS ORDERED: OXYTOCIN 20 UNITS in 0.9% NS 20 UNIT/1,000 ML INFUS.BAG IV ONE ×2 (11:47→15:02)
--- NOTE | 2019-01-04 14:01 | PN ---
Delivery - Delivery Vaginal Delivery: No Problems, Spontaneous (, baby boy, vx roopa position, immediate oral & nasal suction was done at perineum , shoulder delievered without difficulty . placenta & membranes were delievevered completely , cord segment taken for cord gas, cord blood collected , trivascular cord .median episiotomy was given , sutuured in layers with chr catgut #2/0. sponge & needle count correct . bladder catheterized & emptied 50 ml urine. RI exam mucosa & sphincter was intact .) Type of Anesthesia: Epidural Episiotomy/Laceration: Midline EBL (cc): 300 (urine out put 50 ml ) Delivery, Single - Stages of Labor Date 1st Stage Initiatied: 01/04/19 Time 1st Stage Initiated: 02:00 Date 2nd Stage Initiated: 01/04/19 Time 2nd Stage Initiated: 12:45 Date of Delivery: 01/04/19 Time of Delivery: 13:10 Time Placenta Delivered: 13:15 Placenta: Yes: Spontaneous, Uterine Exploration - Condition of Sr. Payroll Manager/Pain Management Nurse Present: No Infant Gender: Male Position: Left, OA Total Hours ROM (Hrs/Mins): 3hs 25 min , mec light - 1 Minute Total Score: 9 5 Minutes Total Score: 9 - [place] Feeding Plan Initial Plan: Elected not to breastfeed exclusively throughout hospitalization Remarks - Remarks Remarks: 33 yrs , , 40/3 weeks pregn in labor gbs neg PNC at [address] [place] [address] intrapartum course uneventful
[2019-01-04] MEDS ORDERED: WITCH HAZEL 50% (TUCKS) 40 PAD/JAR PAD TP PRN (14:04)
[2019-01-04] MEDS ORDERED: BENZOCAINE 28 GM HEMORRHOIDAL OINTMENT TP PRN (14:04)
[2019-01-04] MEDS ORDERED: BISACODYL 10 MG SUPP.RECT RC PRN (14:04)
[2019-01-04] MEDS ORDERED: oxyCODONE HCL 5 MG TABLET PO PRN (14:04)
[2019-01-04] MEDS ORDERED: METHYLERGONOVINE MALEATE 0.2 MG/1 ML AMP IM PRN (14:04)
[2019-01-04] MEDS ORDERED: BENZOCAINE 20% 57 GM BOTTLE TP PRN (14:04)
[2019-01-04] MEDS ORDERED: OXYTOCIN 20 UNITS in 0.9% NS 20 UNIT/1,000 ML INFUS.BAG IV SCH (14:15)
[2019-01-04] MEDS: ACETAMINOPHEN 325 MG TABLET (FP) PO PRN (14:17)
[2019-01-04] MEDS: IBUPROFEN 600 MG TABLET (FP) PO PRN (14:17)
[2019-01-04] MEDS: FERROUS SO4 325 MG TABLET (FP) PO SCH (17:06)
[2019-01-05] MEDS: ACETAMINOPHEN 325 MG TABLET (FP) PO PRN ×3 (00:12→21:58)
[2019-01-05] MEDS: IBUPROFEN 600 MG TABLET (FP) PO PRN ×3 (00:13→21:58)
[2019-01-05 08:07] LABS: BASO % 0.3 % (0-2.0); EOS % 0.5 % (0-4.5); HEMATOCRIT 36.5 % (32.4-45.2); HEMOGLOBIN 12.4 GM/dL (10.7-15.3); LYMPH % 17.6 % (8-40); MCH 31.4 pg (25.7-33.7); MCHC 33.9 g/dl (32.0-36.0); MEAN CELL VOLUME 92.7 fl (80-96); MEAN PLT VOLUME 9.3 fl (7.5-11.1); MONO % 5.9 % (3.8-10.2); NEUT % 75.7 % (42.8-82.8); PLATELET COUNT 150 K/MM3 (134-434); RBC 3.94 M/mm3 (3.60-5.2); RDW 13.4 % (11.6-15.6)
[2019-01-05] MEDS: FERROUS SO4 325 MG TABLET (FP) PO SCH ×2 (08:14→17:16)
--- NOTE | 2019-01-05 08:51 | PN ---
Post Progress Note - Subjective Subjective: Ambulating, tolerating PO, lochia decreased, breast and bottle feeding, voiding Post Day: 1 Type of Delivery: Vital Signs: Vital Signs Temperature 98.7 F 01/05/19 07:30 Pulse Rate 74 01/05/19 07:30 Respiratory Rate 18 01/05/19 07:30 Blood Pressure 114/74 01/05/19 07:30 O2 Sat by Pulse Oximetry (%) 100 01/04/19 15:30 Breast Exam: Yes: Other (deferred) Uterus: Yes: Fundus Firm Abdomen/GI: Yes: Abdomen soft Lochia, amount: Moderate Extremities: Yes: Calves non-tender Activity: Ambulating - Labs Labs: CBC WBC 9.0 K/mm3 (4.0-10.0) 01/05/19 07:38 RBC 3.94 M/mm3 (3.60-5.2) 01/05/19 07:38 Hgb 12.4 GM/dL (10.7-15.3) 01/05/19 07:38 Hct 36.5 % (32.4-45.2) 01/05/19 07:38 MCV 92.7 fl (80-96) 01/05/19 07:38 MCH 31.4 pg (25.7-33.7) 01/05/19 07:38 MCHC 33.9 g/dl (32.0-36.0) 01/05/19 07:38 RDW 13.4 % (11.6-15.6) 01/05/19 07:38 Plt Count 150 K/MM3 (134-434) 01/05/19 07:38 MPV 9.3 fl (7.5-11.1) 01/05/19 07:38 Absolute Neuts (auto) 6.8 K/mm3 (1.5-8.0) 01/05/19 07:38 Neutrophils % 75.7 % (42.8-82.8) D 01/05/19 07:38 Lymphocytes % 17.6 % (8-40) D 01/05/19 07:38 Monocytes % 5.9 % (3.8-10.2) 01/05/19 07:38 Eosinophils % 0.5 % (0-4.5) 01/05/19 07:38 Basophils % 0.3 % (0-2.0) 01/05/19 07:38 Nucleated RBC % 0 % (0-0) 01/05/19 07:38 Assessment/Plan PPD # 1 in stable condition and doing well. Infant is at bedside -Continue PP care -Anticipate D/C home tomorrow
[2019-01-05] MEDS: PRENATAL VITAMINS W/ FOLIC ACID TABLET (FP) PO SCH (09:03)
[2019-01-05] MEDS ORDERED: SENNOSIDES/DOCUSATE COMBO (SENNA PLUS) TABLET (UD) PO PRN (22:00)
[2019-01-06] MEDS: FERROUS SO4 325 MG TABLET (FP) PO SCH (08:45)
[2019-01-06] MEDS: IBUPROFEN 600 MG TABLET (FP) PO PRN (08:45)
[2019-01-06] MEDS: ACETAMINOPHEN 325 MG TABLET (FP) PO PRN (08:48)
--- NOTE | 2019-01-06 08:59 | DS ---
Physical Exam-METAL FORGER'S ASSISTANT Vital Signs: Vital Signs Temperature 98.2 F 01/05/19 22:00 Pulse Rate 69 01/05/19 22:00 Respiratory Rate 18 01/05/19 22:00 Blood Pressure 105/71 01/05/19 22:00 O2 Sat by Pulse Oximetry (%) 100 01/04/19 15:30 Constitutional: Yes: Well Nourished, Obese Eyes: Yes: WNL HENT: Yes: WNL Neck: Yes: WNL Cardiovascular: Yes: WNL Respiratory: Yes: WNL Gastrointestinal: Yes: WNL ...Rectal Exam: Yes: WNL Renal/: Yes: WNL ....Post : Yes: Uterus firm, Moderate lochia rubra (perineum intact. no perineal soreness) Breast(s): Yes: WNL (not engorged , BF & Bottle feeding) Musculoskeletal: Yes: WNL Extremities: Yes: WNL. No: Calf Tenderness Edema: LLE: 1+, RLE: 1+ Neurological: Yes: WNL ...Motor Strength: WNL Psychiatric: Yes: WNL, Alert, Oriented Labs: CBC, BMP 01/05/19 07:38 01/04/19 06:00 Delivery - Delivery Vaginal Delivery: No Problems, Spontaneous (, baby boy, vx roopa position, immediate oral & nasal suction was done at perineum , shoulder delievered without difficulty . placenta & membranes were delievevered completely , cord segment taken for cord gas, cord blood collected , trivascular cord .median episiotomy was given , sutuured in layers with chr catgut #2/0. sponge & needle count correct . bladder catheterized & emptied 50 ml urine. [place] exam mucosa & sphincter was intact .) Type of Anesthesia: Epidural Episiotomy/Laceration: Midline EBL (cc): 300 (urine out put 50 ml ) Delivery, Single - Stages of Labor Date 1st Stage Initiatied: 01/04/19 Time 1st Stage Initiated: 02:00 Date 2nd Stage Initiated: 01/04/19 Time 2nd Stage Initiated: 12:45 Date of Delivery: 01/04/19 Time of Delivery: 13:10 Time Placenta Delivered: 13:15 Placenta: Yes: Spontaneous, Uterine Exploration - Condition of Infant Customer Counter Associate/Radiological Technician Present: No Infant Gender: Male Weight: 9 lb 8 oz Position: Left, OA Total Hours ROM (Hrs/Mins): 3hs 25 min , mec light - 1 Minute Total Score: 9 5 Minutes Total Score: 9 - Feeding Plan Initial Plan: Elected not to breastfeed exclusively throughout hospitalization Remarks - Remarks Remarks: 33 yrs , , 40/3 weeks pregn in labor gbs neg PNC at , [facility] intrapartum course uneventful pp couese uneventful. discharge today Discharge Summary Problems reviewed: Yes Reason For Visit: LABOR ADMIT Current Active Problems AMA (advanced maternal age) multigravida 35+ (Acute) Labor established (Acute) Post term over 40 weeks (Acute) Procedures: Principal: Hospital Course: uneventful Health Concerns: none Plan of Treatment: as directed Goals: maternal & well being Condition: Stable - Instructions Diet, Activity, Other Instructions: Post Instructions DIET: Continue good diet high in protein, calcium, and iron rich foods. Drink at least eight (8) glasses of water daily in addition to other fluids. ct Regular diet MEDICATIONS: Continue vitamins and iron as previously directed. Motrin and Tylenol may be taken for minor discomfort. ACTIVITY: Mild to moderate exercise may be started in two (2) weeks. Take frequent rest periods. Resume normal activity after six (6) week check up. WOUND CARE OF OPERATIVE SITE: Continue use of perineal bottle until vaginal discharge stops. Keep area clean. Shower daily. Keep abdominal wound dry. Report any drainage or redness to physician. Tub baths, tampons and douches are not permitted for [address] Breast feeding & or Bottle feeding BREAST CARE: (For those that are not breas tfeeding): If engorgement occurs: Wear tight fitting bra. Take Tylenol or Motrin for pain. Apply cold packs (ice in bags to each breast ) FAMILY PLANNING: There are many control alternatives to pursue and they should be discussed at your first office visit. You may resume sexual activity after your six (6) week check up. (Remember, breast feeding is not a contraceptive) NEXT PHYSICIAN APPOINTMENT: Be certain to call for a four- six (4-6) week appointment, unless otherwise directed. Call Clinic or got to Emergency Dept if you have any of the following: Heavy vaginal bleeding Painful urination Leg pain Unusual odor noted to vaginal bleeding High fever Red streaking noted on breast Referrals: Aury Wynne MD [Primary Care Provider] - Hermelinda Hernandez MD [Staff Physician] - Disposition: HOME - Home Medications Comprehensive Discharge Medication List: Ambulatory Orders Prenat 115/Iron Fum/Folic/Dss [ 19 Tablet] 1 tab PO DAILY 11/18/18 Iron 1 tab PO DAILY 01/04/19 Acetaminophen [Tylenol .Regular Strength -] 650 mg PO Q3H PRN tablet 01/05/19 Benzocaine [Americaine 20% [place] -] 1 spray TP PRN PRN bottle 01/05/19 Ibuprofen [Motrin -] 200 mg PO Q4H PRN tablet 01/05/19 Vitamins (Sjr) - 1 tab PO DAILY tablet 01/05/19 Witch Ivonne 50% (Tucks) [Tucks Pads -] 1 pad TP PRN PRN pad 01/05/19 Prescription Drug Monitoring Program (I-STOP) results: I-STOP reviewed and no issues identified
[2019-01-06] MEDS: PRENATAL VITAMINS W/ FOLIC ACID TABLET (FP) PO SCH (10:00)
[2019-01-06 10:18] VITALS: BP 112/74; PULSE 68; TEMP 98.4
== END 2019-01-06 13:00 | disposition home or self-care (01) | DRG 560 ==
LOC: JLDR 05:30 → J3W 15:35
PROVIDERS: ADMIT Obstetrics & Gynecology; ATTEND Obstetrics & Gynecology
PROC: 10E0XZZ Delivery of Products of Conception, External Approach (ICD-10-PCS; principal; 2019-01-04)
PROC: 0W8NXZZ Division of Female Perineum, External Approach (ICD-10-PCS; 2019-01-04)
DX: O48.0 Post-term pregnancy (principal); Z3A.40 40 weeks gestation of pregnancy; O99.213 Obesity complicating pregnancy, third trimester; Z37.0 Single live birth
CPT/HCPCS: 36415; 36600; 59409; 80048; 82803; 85025; 85610; 85730; 86593; 86850; 86900; 86901

== ENCOUNTER 2021-10-26 18:11 | Emergency (ER) | payer OTHER ==
[2021-10-26 18:27] VITALS: BP 111/58; PULSE 70; RESP 14; TEMP 98.3; BMI 36.2
[2021-10-26 19:56] LABS: EPI CELLS 17 /uL (0-25.1); HYALINE CASTS 1 /uL (0-3.1); PH,URINE 5.5 (5.0-8.0); URINE APPEARANCE TURBID; URINE BACTERIA 1317 /uL (0-1359); URINE BILIRUBIN NEGATIVE (NEGATIVE); URINE COLOR YELLOW; URINE GLUCOSE (UA) NEGATIVE (NEGATIVE); URINE KETONE TRACE (NEGATIVE); URINE LEUK ESTERASE 2+ (NEGATIVE); URINE NITRITE NEGATIVE (NEGATIVE); URINE PROTEIN 2+ (NEGATIVE); URINE RBC 2545 /uL (0-23.9); URINE WBC 702 /uL (0-25.8)
[2021-10-26] MEDS ORDERED: CEPHALEXIN MONOHYDRATE 500 MG CAPSULE (UD) PO ONE (20:20)
[2021-10-26] MEDS ORDERED: CEPHALEXIN MONOHYDRATE 500 MG CAPSULE (UD) ONE (20:21)
== END 2021-10-26 20:23 | disposition home or self-care (01) ==
LOC: JER 18:11 → JERFT 18:11
DX: N39.0 Urinary tract infection, site not specified (principal); R31.9 Hematuria, unspecified
CPT/HCPCS: 81003; 84703; 87086; 99283-25

== ENCOUNTER 2023-06-24 17:58 | Emergency (ER) | payer OTHER ==
[2023-06-24 18:07] VITALS: BP 119/59; PULSE 70; RESP 18; TEMP 97.8; BMI 36.2
[2023-06-24] MEDS ORDERED: KETOROLAC TROMETHAMINE 30 MG/1 ML VIAL ONE (19:14)
[2023-06-24] MEDS: KETOROLAC TROMETHAMINE 30 MG/1 ML VIAL IM ONE (19:17)
== END 2023-06-24 19:26 | disposition home or self-care (01) ==
LOC: JERFT 17:58
PROC: 3E0233Z Introduction of Anti-inflammatory into Muscle, Percutaneous Approach (ICD-10-PCS; principal; 2023-06-24)
DX: M25.562 Pain in left knee (principal); M76.892 Other specified enthesopathies of left lower limb, excluding foot
CPT/HCPCS: 73562-TC-LT-FY; 99284-25